=== PATIENT | female | born 1990 | race American Indian/Alaskan Native ===

== ENCOUNTER 2018-04-23 23:29 | Emergency (ER) | payer BC ==
[2018-04-23 23:42] VITALS: O2SAT 100
[2018-04-24] MEDS ORDERED: Peg-Electrolyte Oral Soln 4L (Golytely) PO STA (01:24)
--- NOTE | 2018-04-24 01:52 | C.PDOC ---
History Of Present Illness 28 year old female presents to the ED c/o constipation for the last 3 days. Patient reports she went camping did not used the bathroom available there and states her last bowel movement was or Tuesday she is not sure. Patient states she now feel pressure in her rectum, has never had simialr symptoms in the past. Patient denies fever, chills, nausea, vomit, diarrhea. While in the ED patient was found to have elevated BP. Patient states she is supposed to be taking Lisinopril but she stopped taking it. Patient states she went to have workup to find source if elevated BP but all results were normal. Patient denies nay headache, palpitations, CP, SOB, dizziness. Time Seen by Provider: 04/23/18 23:43 Chief Complaint (Nursing): GI Problem History Per: Patient History/Exam Limitations: no limitations Onset/Duration Of Symptoms: Days (3) Current Symptoms Are (Timing): Still Present Location Of Pain/Discomfort: Diffuse Radiation Of Pain To:: None Quality Of Discomfort: "Pain" Associated Symptoms: Constipation Exacerbating Factors: None Alleviating Factors: None Last Bowel Movement: Days Ago Recent travel outside of the [place]: No Additional History Per: Patient Abnormal Vaginal Bleeding: No Past Medical History Reviewed: Historical Data, Nursing Documentation, Vital Signs Vital Signs: Last Vital Signs Temp 98.1 F 04/24/18 03:55 Pulse 97 H 04/24/18 03:55 Resp 17 04/24/18 03:55 BP 151/90 H 04/24/18 04:33 Pulse Ox 100 04/24/18 03:29 - Medical History PMH: HTN Surgical History: No Surg Hx Family History: States: Unknown Family Hx - Social History Hx Alcohol Use: No Hx Substance Use: No - Immunization History Hx Tetanus Toxoid Vaccination: No Hx Influenza Vaccination: No Hx Pneumococcal Vaccination: No Review Of Systems Constitutional: Negative for: Fever, Chills Eyes: Negative for: Vision Change Cardiovascular: Negative for: Chest Pain, Palpitations Respiratory: Negative for: Shortness of Breath Gastrointestinal: Positive for: Abdominal Pain, Constipation Skin: Negative for: Rash Neurological: Negative for: Weakness, Numbness, Headache, Dizziness Physical Exam - Physical Exam Appears: Non-toxic, No Acute Distress Skin: Normal Color, Warm, Dry Head: Atraumatic, Normacephalic Eye(s): bilateral: Normal Inspection Oral Mucosa: Moist Neck: Normal ROM, Supple Chest: Symmetrical Cardiovascular: Rhythm Regular Respiratory: Normal Breath Sounds, No Rales, No Rhonchi, No Wheezing Gastrointestinal/Abdominal: Soft, No Tenderness, No Guarding, No Rebound Extremity: Normal ROM, No Tenderness, No Swelling Neurological/Psych: Oriented x3, Normal Speech Gait: Steady ED Course And Treatment O2 Sat by Pulse Oximetry: 100 (ON RA) Pulse Ox Interpretation: Normal - Other Rad Abdomen X-Ray X-Ray: Interpreted by Me, Viewed By Me Interpretation: constipation Progress Note: Plan: - Lisinopril 20 mg PO. - Abdominal X-Ray. - Fleet enema 135 ml AR. - Golytely 4,000 ml PO Reassessment Condition: Improved (had a large BM, BP went down after Lisinopril and Clonidin po. Pt denies CP, headache, dizziness, SOB or abdominal pain.) Disposition - Disposition Disposition: HOME/ ROUTINE Disposition Time: 03:19 Condition: STABLE Additional Instructions: Follow up with your PMD within 1-2 days. Return to ED if feel worse. Prescriptions: Lactulose 30 ml PO DAILY PRN #600 ml PRN Reason: Constipation Instructions: Constipation, Adult (DC) Forms: [employer] [facility] ([place]), Work Excuse - Clinical Impression Clinical Impression: Constipation - PA / REPAIR MECHANIC / Resident Statement MD/DO has reviewed & agrees with the documentation as recorded. - Scribe Statement The provider has reviewed the documentation as recorded by the Scribe Riki Mack All medical record entries made by the Scribe were at my direction and personally dictated by me. I have reviewed the chart and agree that the record accurately reflects my personal performance of the history, physical exam, medical decision making, and the department course for this patient. I have also personally directed, reviewed, and agree with the discharge instructions and disposition.
[2018-04-24 03:56] VITALS: PULSE 97; RESP 17; TEMP 98.1
[2018-04-24 04:33] VITALS: BP 151/90
--- NOTE | 2018-04-24 09:19 | RAD ---
HISTORY: constipation COMPARISON: No prior. FINDINGS: BOWEL: Mild retained feces. No evidence of bowel obstruction. No masses or abnormal intra-abdominal calcifications. BONES: Normal. OTHER FINDINGS: None. IMPRESSION: No active disease.
== END 2018-04-24 06:14 | disposition home or self-care (01) ==
LOC: C.ER 23:29
DX: K59.00 Constipation, unspecified (principal)